=== PATIENT | female | born 1960 | race Hispanic/Latino ===

== ENCOUNTER 2022-06-20 13:49 | Outpatient (RCR) | payer MEDICARE | END 2022-06-25 | LOC: PT 13:49 | PROVIDERS: ATTEND Specialist | DX: M17.11 Unilateral primary osteoarthritis, right knee (principal) ==

== ENCOUNTER 2022-07-15 09:42 | Outpatient (RCR) | payer MEDICARE | END 2022-07-23 | LOC: PT 09:42 | PROVIDERS: ATTEND Specialist | DX: M17.11 Unilateral primary osteoarthritis, right knee (principal) ==

== ENCOUNTER 2024-11-09 06:48 | Day surgery (SDC) | payer MEDICARE ==
[2024-11-08 08:57] LABS: BASOPHILS % 0.3 % (0.0-1.0); EOSINOPHILS # (AUTO) 0.2 (0.0-0.4); EOSINOPHILS % 2.4 % (0.0-6.0); HEMATOCRIT 31.6 % (34.2-44.1); LYMPHOCYTES # (AUTO) 1.3 (1.0-3.2); LYMPHOCYTES % 20.7 % (18.0-39.1); MEAN CORPUSCULAR HEMOGLOBIN 28.2 pg (28-32); MEAN CORPUSCULAR HGB CONC 31.6 g/dL (31-35); MEAN CORPUSCULAR VOLUME 89.3 fL (81-99); MONOCYTES # (AUTO) 0.4 (0.2-0.8); NEUTROPHILS # (AUTO) 4.3 (2.1-6.9); NEUTROPHILS % 70.3 % (38.7-80.0); PLATELET COUNT 226 x10e3/uL (140-360); RED BLOOD COUNT 3.54 x10e6/uL (3.6-5.1); RED CELL DISTRIBUTION WIDTH 15.1 % (11.7-14.4); WHITE BLOOD COUNT 6.17 x10e3/uL (4.8-10.8)
[2024-11-08 09:29] LABS: ALBUMIN 3.8 g/dL (3.5-5.0); ALBUMIN/GLOBULIN RATIO 1.1 (0.8-2.0); ANION GAP 15.9 mmol/L (8-16); BILIRUBIN,TOTAL 0.5 mg/dL (0.2-1.2); CALCIUM 8.8 mg/dL (8.4-10.2); CHOL/HDL RATIO 4.7 (3.0-3.6); CREATININE, SERUM 1.16 mg/dL (0.57-1.11); POTASSIUM 3.9 mmol/L (3.5-5.1); TOTAL PROTEIN 7.3 g/dL (6.5-8.1)
[~2024-11-09] VITALS: Ht 154.9 cm; Wt 66.7 kg
[2024-11-09] VITALS (12 sets, daily range): BP systolic 101–133; BP diastolic 67–79; PULSE 75–96; RESP 12–20; TEMP 97.7; O2SAT 95–99
[~2024-11-09 06:48] MED LIST: ALLOPURINOL100 MG PO; AMOX TR-K CLV1 EAC2 PO; CALCITRIOL0.25 MCG PO; CALCIUM ACETAT667 M1 PO; COREG6.25 MG PO; DEXILANT60 MG; GLIMEPIRIDE2 MG PO; HYDROCHLOROTHIA25 MG; LIPITOR20 MG PO; LOSARTAN POTAS100 MG PO; MINOXIDIL2.5 MG PO; NEURONTIN400 MG PO; SYNTHROID112 MCG PO; TRADJENTA5 MG; VASCEPA1 GM
[2024-11-09] MEDS ORDERED: VERAPAMIL HCL 2.5 MG/ML 2 ML VIAL ONE (08:51)
[2024-11-09] MEDS ORDERED: HEPARIN SOD (PORCINE) 1000 UNIT/ML 30ML ONE (08:51)
[2024-11-09] MEDS ORDERED: HEPARIN SOD/SOD CHLORIDE 2,000 ML ONE (08:51)
[2024-11-09] MEDS ORDERED: SODIUM CHLORIDE 0.9% 1000ML 1,000 ML ONE (08:51)
[2024-11-09] MEDS ORDERED: NITROGLYCERIN/D5W 200 MCG/ML 250 ML ONE (08:51)
[2024-11-09] MEDS ORDERED: IOPAMIDOL 370 MG/ML 100 ML INFUS..BTL INJ ONE (08:51)
[2024-11-09] MEDS ORDERED: LIDOCAINE HCL 2% LOCAL 20 ML VIAL ONE (08:51)
[2024-11-09] MEDS ORDERED: FENTANYL CITRATE/PF 100MCG/2 ML INJ ONE (08:52)
[2024-11-09] MEDS ORDERED: MIDAZOLAM HCL 2 MG/2 ML VIAL ONE (08:52)
== END 2024-11-09 12:45 | disposition home or self-care (01) ==
LOC: CATH LAB 06:48
PROVIDERS: ATTEND Internal Medicine Interventional Cardiology
DX: I25.119 Atherosclerotic heart disease of native coronary artery with unspecified angina pectoris (principal); I11.0 Hypertensive heart disease with heart failure; I50.32 Chronic diastolic (congestive) heart failure; R94.39 Abnormal result of other cardiovascular function study; E78.00 Pure hypercholesterolemia, unspecified; D64.9 Anemia, unspecified; E11.9 Type 2 diabetes mellitus without complications; Z79.84 Long term (current) use of oral hypoglycemic drugs; E07.9 Disorder of thyroid, unspecified; M19.91 Primary osteoarthritis, unspecified site; M79.89 Other specified soft tissue disorders; Z01.812 Encounter for preprocedural laboratory examination; Z79.899 Other long term (current) drug therapy
CPT/HCPCS: 36415; 76937; 80053; 80061; 85025; 93456; C1769; C1887; C1894; J1644; J2003; J2250; J3010; J7030; Q9967; 93460; 99152; 99153